=== PATIENT | male | born 1965 | race Caucasian/White ===

== ENCOUNTER 2017-01-17 10:30 | Emergency (ER) | payer OTHER ==
[~2017-01-17] VITALS: Ht 177.8 cm; Wt 95.3 kg
[2017-01-17] MEDS ORDERED: IBUP-1482 PO (10:46)
[2017-01-17] MEDS ORDERED: METH500T PO (10:46)
[2017-01-17] MEDS ORDERED: ACYC800T PO (10:46)
[2017-01-17] MEDS ORDERED: GABA600T2 PO (10:46)
[2017-01-17] MEDS ORDERED: CARI6CAP PO (10:46)
[2017-01-17] MEDS ORDERED: TADA5TAB2 PO (10:46)
--- NOTE | 2017-01-17 11:02 | NUR ---
DR DRAPER AT THE BEDSIDE FOR EVAL AND EXAM.
--- NOTE | 2017-01-17 11:10 | NUR ---
PER MD PT WILL SELF CATH FOR URINE COLLECTION.
[2017-01-17 11:41] LABS: BASOPHILS # (AUTO) 0.1 K/uL (0.0-8.0); BASOPHILS % (AUTO) 0.6 % (0.0-2.0); EOSINOPHILS # (AUTO) 0.2 K/uL (0.0-0.7); EOSINOPHILS % (AUTO) 1.8 % (0.0-7.0); HEMATOCRIT 47.8 % (36.7-47.1); HEMOGLOBIN 16.6 g/dL (12.5-16.3); LYMPHOCYTES # (AUTO) 2.3 K/uL (20.0-40.0); LYMPHOCYTES % (AUTO) 27.7 % (20.5-51.5); MEAN CORPUSCULAR HEMOGLOBIN 30.8 uug (23.8-33.4); MEAN CORPUSCULAR HGB CONC 35 g/dL (32.5-36.3); MEAN CORPUSCULAR VOLUME 88.7 fL (73.0-96.2); MONOCYTES # (AUTO) 0.5 K/uL (2.0-10.0); MONOCYTES % (AUTO) 5.8 % (0.0-11.0); NEUTROPHILS # (AUTO) 5.3 K/uL (1.8-8.9); NEUTROPHILS % (AUTO) 64.1 % (38.5-71.5); PLATELET COUNT (AUTO) 260 K/uL (152-348); RED BLOOD CELL COUNT(AUTO) 5.39 MIL/uL (4.06-5.63); RED CELL DISTRIBUTION WIDTH 13.4 % (12.1-16.2); WHITE BLOOD COUNT (AUTO) 8.4 K/uL (3.6-10.2)
[2017-01-17 11:42] LABS: CALCIUM 8.9 mg/dL (8.5-10.1); CREATININE 1.1 mg/dL (0.6-1.3); POTASSIUM 4.2 mmol/L (3.5-5.1)
[2017-01-17 11:47] LABS: *BILIRUBIN,URIN NEGATIVE (NEGATIVE); *BLOOD, URINE Trace-intact (NEGATIVE); *CLARITY,URINE CLOUDY (CLEAR); *COLOR,URINE YELLOW (YELLOW); *KETONES,URINE NEGATIVE (NEGATIVE); *PROTEIN,URINE NEGATIVE (NEGATIVE); *UROBILINOGEN,URINE 0.2 E.U./dl (NORMAL); ALBUMIN 3.7 g/dL (3.4-5.0); BILIRUBIN,DIRECT 0.1 mg/dL (0.0-0.2); BILIRUBIN,TOTAL 0.4 mg/dL (0.2-1.0); LEUKOCYTE ESTERASE ,URINE 2+ (NEGATIVE); NITRITE, URINE POSITIVE (NEGATIVE); TOTAL PROTEIN, SERUM 7.8 g/dL (6.4-8.2); UGLUCOSE NEGATIVE (NEGATIVE)
[2017-01-17 11:49] LABS: TROPONIN I < 0.017 ng/mL (0.00-0.056)
[2017-01-17 11:55] LABS: LACTIC ACID 1.4 mmol/L (0.4-2.0)
[2017-01-17 12:05] LABS: BACTERIA,URINE MANY /HPF (NONE SEEN); SQUAMOUS EPITHELIAL CELL,UR FEW /HPF (NONE SEEN); WBC,URINE 20-50 /HPF (0-3)
[2017-01-17 13:14] VITALS: BP 120/66
--- NOTE | 2017-01-17 13:14 | NUR ---
Patient discharged to home in stable conditon. Written and verbal after care instructions given. Patient verbalizes understanding of instructions.
== END 2017-01-17 13:14 | disposition home or self-care (01) ==
LOC: ER 10:30
DX: N12 Tubulo-interstitial nephritis, not specified as acute or chronic (principal); Z88.0 Allergy status to penicillin
CPT/HCPCS: 36415; 51702; 70030-TC; 76870; 83605; 83690; 85025; 87040; 87086; A4663